=== PATIENT | female | born 1960 | race Caucasian/White ===

== ENCOUNTER 2017-09-03 12:55 | Outpatient (CLI) | payer BC | END 2017-09-03 12:56 | disposition home or self-care (01) | LOC: BICMAMMO 12:55 | PROVIDERS: ATTEND Specialist | DX: N64.4 Mastodynia (principal); Z80.3 Family history of malignant neoplasm of breast; Z85.41 Personal history of malignant neoplasm of cervix uteri | CPT/HCPCS: 77066; G0279 ==

== ENCOUNTER 2017-11-04 15:19 | Outpatient (CLI) | payer BC | END 2017-11-04 15:20 | disposition home or self-care (01) | LOC: SCSULT 15:19 → BICULT 15:20 | PROVIDERS: ATTEND Urology | DX: N20.0 Calculus of kidney (principal) | CPT/HCPCS: 74018; 76770 ==

== ENCOUNTER 2018-04-27 20:46 | Emergency (ER) | payer BC ==
[2018-04-27] MEDS ORDERED: Ondansetron PF 4 MG/2 ML Vial ONE ×2 (21:23→23:13)
[2018-04-27 21:32] LABS: #Eosinphils 0.1 thou/uL (0.0-0.7); #Lymphocytes 0.6 thou/uL (1.20-3.40); #Monocytes 0.4 thou/uL (0.11-0.59); #Neutrophils 10.4 thou/uL (1.40-6.50); %Basophils 0.1 % (0.0-1.0); %Eosinophils 0.8 % (0.0-10.0); %Lymphocytes 5.5 % (21.0-51.0); %Monocytes 3.4 % (0.0-10.0); %Neutrophils 90.1 % (42.0-75.0); Hemoglobin 15.1 g/dL (12.0-16.0); Mean Corpuscular HGB CONC 33.3 g/dL (32.0-36.0); Mean Corpuscular Hemoglobin 32.7 pg (27.0-31.0); Mean Corpuscular Volume 98.1 fL (78.0-98.0); Mean Platelet Volume 8.4 fL (7.4-10.4); Platelet Count 217 thou/uL (130-400); RBC Distribution Width 11.8 % (11.5-14.5); Red Blood Cell (RBC) Count 4.63 mill/uL (4.20-5.40); White Blood Cell (WBC) Count 11.5 thou/uL (4.8-10.8)
[2018-04-27 21:52] LABS: ALT (SGPT) 9 U/L (8-55); AST (SGOT) 19 U/L (5-34); Albumin 4.6 g/dL (3.5-5.0); Alkaline Phosphatase 147 U/L (40-150); Anion Gap 11 mmol/L (10-20); BUN (Urea Nitrogen) 18 mg/dL (9.8-20.1); Bilirubin, Total 1.3 mg/dL (0.2-1.2); Calc. Creatinine Clearance 0 mL/min (70-130); Calcium 9.8 mg/dL (7.8-10.44); Carbon Dioxide 29 mmol/L (22-29); Chloride 104 mmol/L (98-107); Estimated GFR-MDRD 78; Globulin 3.1 g/dL (2.4-3.5); Glucose 136 mg/dL (70-105); Potassium 3.8 mmol/L (3.5-5.1); Protein, Total 7.7 g/dL (6.0-8.3); Sodium 140 mmol/L (136-145)
[2018-04-27] MEDS ORDERED: Lidocaine Viscous Sol 2% 15 ml UD Cup ONE (22:17)
[2018-04-27] MEDS ORDERED: Ketorolac Tromethamine 30 MG/ML VIAL ONE (23:01)
[2018-04-27] MEDS ORDERED: Ondansetron ODT 4 MG TAB ONE (23:13)
[2018-04-27] MEDS ORDERED: Ondansetron ODT 8 MG TAB ONE (23:14)
--- NOTE | 2018-04-30 12:31 | EKG ---
Test Reason : Blood Pressure : / mmHG Vent. Rate : 096 BPM Atrial Rate : 096 BPM P-R Int : 124 ms QRS Dur : 074 ms QT Int : 340 ms P-R-T Axes : 056 027 065 degrees QTc Int : 429 ms Normal sinus rhythm Possible Left atrial enlargement Borderline ECG Confirmed by WILMAR LOW ([id number]), assistant production editor MATEUSZ QUEEN ([id number]) on 04/30/2018 12:30:52 PM Referred By: Confirmed By:WILMAR LOW
== END 2018-04-27 23:19 | disposition home or self-care (01) ==
LOC: ERS 20:46
DX: B34.9 Viral infection, unspecified (principal); J02.9 Acute pharyngitis, unspecified; E03.9 Hypothyroidism, unspecified; Z87.442 Personal history of urinary calculi
CPT/HCPCS: 80053; 84484; 85025; 87081; 87430; 87804; 93005; 96361; 96374; 96375; J1885; J2405; Q0162

== ENCOUNTER 2018-09-21 07:49 | Outpatient (CLI) | payer BC ==
--- NOTE | 2018-09-21 08:37 | MMO ---
Bilateral MAMMO Bilat Screen [facility]. CLINICAL HISTORY: Patient is 58 years old and is seen for screening. The patient has the following family history of breast cancer: 2 cousin females, Paternal and cousin female, 2ND PATERNAL. The patient has a history of cervical cancer. The patient has a history of left Excisional Biopsy in October, - benign. VIEWS: The views performed were: bilateral craniocaudal with tomosynthesis and bilateral mediolateral oblique with tomosynthesis. FILMS COMPARED: The present examination has been compared to prior imaging studies performed at [facility] on 03/17/2011, 03/24/2012, 04/18/2013, 10/06/2016 and 09/03/2017. MAMMOGRAM FINDINGS: The breasts are heterogeneously dense, which could obscure a lesion on mammography. There are no suspicious masses, suspicious calcifications, or new areas of architectural distortion. IMPRESSION: THERE IS NO MAMMOGRAPHIC EVIDENCE OF MALIGNANCY. A ROUTINE FOLLOW-UP MAMMOGRAM IN 1 YEAR IS RECOMMENDED. THE RESULTS OF THIS EXAM WERE SENT TO THE PATIENT. ACR BI-RADS Category 1 - Negative MAMMOGRAPHY NOTE: 1. A negative mammogram report should not delay a biopsy if a dominant of clinically suspicious mass is present. 2. Approximately 10% to 15% of breast cancers are not detected by mammography. 3. Adenosis and dense breasts may obscure an underlying neoplasm.
== END 2018-09-21 07:50 | disposition home or self-care (01) ==
LOC: BICMAMMO 07:49
PROVIDERS: ATTEND Specialist
DX: Z12.31 Encounter for screening mammogram for malignant neoplasm of breast (principal); Z80.3 Family history of malignant neoplasm of breast; Z85.41 Personal history of malignant neoplasm of cervix uteri
CPT/HCPCS: 77063; 77067

== ENCOUNTER 2019-09-27 13:41 | Outpatient (CLI) | payer BC ==
--- NOTE | 2019-09-27 15:03 | MMO ---
Bilateral MAMMO Bilat Screen [facility]. CLINICAL HISTORY: Patient is 59 years old and is seen for screening. The patient has the following family history of breast cancer: 2 cousin females, Paternal and cousin female, 2ND PATERNAL. The patient has a history of cervical cancer. The patient has a history of left Excisional Biopsy in October, - benign. VIEWS: The views performed were: bilateral craniocaudal with tomosynthesis and bilateral mediolateral oblique with tomosynthesis. FILMS COMPARED: The present examination has been compared to prior imaging studies performed at [facility] on 04/18/2013, 10/06/2016, 09/03/2017 and 09/21/2018. This study has been interpreted with the assistance of computer-aided detection. MAMMOGRAM FINDINGS: The breasts are heterogeneously dense, which could obscure a lesion on mammography. There are no suspicious masses, suspicious calcifications, or new areas of architectural distortion. IMPRESSION: THERE IS NO MAMMOGRAPHIC EVIDENCE OF MALIGNANCY. A ROUTINE FOLLOW-UP MAMMOGRAM IN 1 YEAR IS RECOMMENDED. THE RESULTS OF THIS EXAM WERE SENT TO THE PATIENT. ACR BI-RADS Category 1 - Negative MAMMOGRAPHY NOTE: 1. A negative mammogram report should not delay a biopsy if a dominant of clinically suspicious mass is present. 2. Approximately 10% to 15% of breast cancers are not detected by mammography. 3. Adenosis and dense breasts may obscure an underlying neoplasm. Reported by: HERON BOONE MD Electonically Signed: [id number]
--- NOTE | 2019-09-27 15:28 | BD ---
DEXA BONE DENSITOMETRY: (Dual energy X-ray Absorptiometry) 09/27/19 HISTORY: 59-year-old white female for baseline, postmenopausal, age-related osteoporosis screening examination . Age of menopause: 47 years. Height: 60 inches. Weight: 130 lb. COMPARISON: None available. FINDINGS: The bone mineral density (BMD) is given in grams per square centimeter (g/cm2): LUMBAR SPINE: BMD(g/cm2) T-score Z-score L1: 0.770 -2.0 -0.7 L2: 0.899 -1.2 0.3 L3: 0.881 -1.8 -0.3 L4: 0.842 -2.0 -0.4 Total: 0.848 -1.8 -0.3 HIP: Femoral neck: 0.458 -3.5 -2.2 Total: 0.602 -2.8 -1.8 IMPRESSION: 1) The mean bone mineral density of the lumbar spine is osteopenic. Fracture risk is increased. 2) The bone mineral density of the femoral neck is osteoporotic. Fracture risk is high. JN R POS: [facility]
== END 2019-09-27 13:42 | disposition home or self-care (01) ==
LOC: BICMAMMO 13:41
PROVIDERS: ATTEND Specialist
DX: Z12.31 Encounter for screening mammogram for malignant neoplasm of breast (principal); M81.0 Age-related osteoporosis without current pathological fracture; M85.88 Other specified disorders of bone density and structure, other site; Z80.3 Family history of malignant neoplasm of breast; Z91.89 Other specified personal risk factors, not elsewhere classified; Z85.41 Personal history of malignant neoplasm of cervix uteri
CPT/HCPCS: 77063; 77067; 77080

== ENCOUNTER 2020-07-02 12:55 | Outpatient (CLI) | payer BC ==
--- NOTE | 2020-07-02 13:39 | CT ---
CT Stone Protocol 07/02/2020 1:00 PM HISTORY: Right flank pain for months. Progressively worse. COMPARISON: 02/02/2017 Technique: Multiple contiguous axial CT images are obtained through the abdomen and pelvis without IV contrast. Coronal reformats are provided. FINDINGS: This examination is limited for the evaluation of solid organs and vascular structures due to the lac k of intravenous contrast. Lower Chest: Lung bases are clear. Liver: Grossly normal non-enhanced CT appearance. Gallbladder: Within normal limits for CT imaging. Pancreas: Grossly normal nonenhanced CT appearance. Spleen: Grossly normal nonenhanced CT appearance. Adrenals: Grossly normal nonenhanced CT appearance. Kidneys and ureters: Nonobstructing right renal calculi are seen with at least 4 nonobstructing calcu li visualized. Largest calculus in the superior pole measures 4 mm. No left renal calculus is seen, and there is no ureteral calculus or evidence of hydronephrosis. Urinary bladder: Incompletely distended but otherwise grossly normal in appearance. Reproductive Organs: Evidence of hysterectomy. Lymph Nodes: No enlarged lymph nodes. Bowel: Small bowel loops are normal in caliber. Appendix: The appendix is normal in caliber. Peritoneum: No free fluid, free air, or fluid collection. Retroperitoneum: within normal limits. Vessels: Vascular calcifications are seen in the abdominal aorta and iliac arteries.. Abdominal Wall: There is evidence of a fat-containing Spigelian hernia on the right at the level of the upper pelvis. Bones: No lytic or sclerotic osseous lesions. IMPRESSION: 1. Nonobstructing right renal calculi. 2. No left renal calculus or ureteral calculi are seen. 3. Stable fat-containing right Spigelian hernia.
== END 2020-07-02 12:56 | disposition home or self-care (01) ==
LOC: CT 12:55
PROVIDERS: ATTEND Urology
DX: N20.2 Calculus of kidney with calculus of ureter (principal); K43.9 Ventral hernia without obstruction or gangrene
CPT/HCPCS: 74176

== ENCOUNTER 2020-07-31 14:36 | Inpatient (IN) | payer BC ==
[2020-07-31 15:10] LABS: #Eosinphils 0.1 thou/uL (0.0-0.7); #Lymphocytes 1.9 thou/uL (1.20-3.40); #Monocytes 0.5 thou/uL (0.11-0.59); #Neutrophils 3.9 thou/uL (1.40-6.50); %Basophils 0.7 % (0.0-1.0); %Eosinophils 2.1 % (0.0-10.0); %Lymphocytes 28.7 % (21.0-51.0); %Monocytes 7.6 % (0.0-10.0); %Neutrophils 60.9 % (42.0-75.0); Hemoglobin 14.3 g/dL (12.0-16.0); Mean Corpuscular HGB CONC 33.9 g/dL (32.0-36.0); Mean Corpuscular Hemoglobin 34.4 pg (27.0-31.0); Mean Platelet Volume 9.2 fL (7.4-10.4); Platelet Count 198 thou/uL (130-400); RBC Distribution Width 12.7 % (11.5-14.5); Red Blood Cell (RBC) Count 4.14 mill/uL (4.20-5.40); White Blood Cell (WBC) Count 6.5 thou/uL (4.8-10.8)
[2020-07-31 15:34] LABS: ALT (SGPT) 15 U/L (8-55); AST (SGOT) 28 U/L (5-34); Albumin 4.3 g/dL (3.4-4.8); Alkaline Phosphatase 98 U/L (40-110); Anion Gap 14 mmol/L (10-20); BUN (Urea Nitrogen) 13 mg/dL (9.8-20.1); Bilirubin, Total 1.1 mg/dL (0.2-1.2); Calc. Creatinine Clearance 0 mL/min (70-130); Calcium 9.3 mg/dL (7.8-10.44); Carbon Dioxide 24 mmol/L (23-31); Chloride 107 mmol/L (98-107); Globulin 2.5 g/dL (2.4-3.5); Glucose 120 mg/dL (80-115); Lipase 48 U/L (8-78); Potassium 4.1 mmol/L (3.5-5.1); Protein, Total 6.8 g/dL (5.8-8.1); Sodium 141 mmol/L (136-145)
[2020-07-31] MEDS ORDERED: Aspirin 325 MG TAB ONE (16:33)
[2020-07-31] MEDS ORDERED: Nitroglycerin 2% Ointment 1 INCH/1 GM Packet ONE (17:09)
[2020-07-31] MEDS ORDERED: Ondansetron PF 4 MG/2 ML Vial ONE ×2 (18:25→19:34)
[2020-07-31 19:22] LABS: Troponin I Less than 0.010 ng/mL (< 0.028)
[2020-07-31] MEDS ORDERED: Morphine 4 MG/ML VIAL ONE (19:34)
[2020-07-31] MEDS ORDERED: Acetaminophen 500 MG TAB ONE (19:39)
[2020-07-31 21:52] LABS: Troponin I Less than 0.010 ng/mL (< 0.028)
[2020-07-31] MEDS ORDERED: Phenazopyridine HCl 100 MG TAB PO SCH (22:00)
[2020-07-31] MEDS ORDERED: Sulfameth/Trimethoprim DS 800-160mg TAB PO SCH (22:00)
[2020-07-31] MEDS ORDERED: Acetaminophen 500 MG TAB PO PRN (22:10)
[2020-07-31] MEDS ORDERED: Promethazine 25 MG TAB PO PRN (22:12)
[2020-07-31] MEDS: Nitroglycerin 2% Ointment 1 INCH/1 GM Packet TOP SCH (22:44)
[2020-07-31 23:56] LABS: Bacteria/HPF None Seen HPF (None Seen); Bilirubin Negative (Negative); Blood, Urine Negative (Negative); Clarity Clear (Clear); Glucose, Urine (Dipstick) Normal (Negative); Ketone, Urine Negative (Negative); Leukocyte Negative Leu/uL (Negative); Nitrite Negative (Negative); Protein, Urine (Dipstick) Negative (Neg-Trace); RBC/HPF None Seen HPF (0-3); Specific Gravity, Urine 1.009 (1.002-1.036); Squamous Epithelial 0-3 HPF (0-3); Urobilinogen Normal mg/dL (Less than 2); WBC/HPF 0-3 HPF (0-3)
[2020-07-31 23:57] LABS: Urine Culture Reflex No No
[2020-08-01 05:43] LABS: SARS-CoV-2 PCR by NAA Not Detected (NotDetected)
[2020-08-01] MEDS: Nitroglycerin 2% Ointment 1 INCH/1 GM Packet TOP SCH ×2 (07:08→14:29)
[2020-08-01] MEDS: Levothyroxine Sodium 50 MCG TAB PO SCH (07:08)
[2020-08-01] MEDS: Phenazopyridine HCl 100 MG TAB PO SCH ×3 (08:58→20:39)
[2020-08-01] MEDS: Sulfameth/Trimethoprim DS 800-160mg TAB PO SCH ×2 (09:00→20:39)
[2020-08-01] MEDS: Carvedilol 6.25 MG TAB PO SCH ×2 (09:00→20:39)
[2020-08-01 10:46] VITALS: BMI 23.1
[2020-08-01] MEDS ORDERED: Iopamidol 370 76% 100 ML VIAL ONE (11:01)
[2020-08-01] MEDS ORDERED: ADENOSINE 60 MG/20 ML VIAL ONE (11:53)
[2020-08-01] MEDS: Clopidogrel Bisulfate 75 MG TAB PO SCH (12:35)
[2020-08-01] MEDS: Aspirin 325 mg Enteric Coated Tablet PO SCH (12:35)
[2020-08-01] MEDS: ESZOPICLONE 3 MG PO SCH ×2 (20:40→21:45)
[2020-08-02] MEDS: Nitroglycerin 2% Ointment 1 INCH/1 GM Packet TOP SCH ×3 (03:43→13:08)
[2020-08-02] MEDS: Levothyroxine Sodium 50 MCG TAB PO SCH (05:27)
[2020-08-02] MEDS ORDERED: Lidocaine 1% PF 5 ML VIAL ONE (09:03)
[2020-08-02] MEDS ORDERED: PROPOFOL 200 MG/20 ML VIAL ONE (09:03)
[2020-08-02] MEDS ORDERED: Ondansetron HCl/PF 4 MG/2 ML Vial IVP PRN (09:50)
[2020-08-02] MEDS: Sulfameth/Trimethoprim DS 800-160mg TAB PO SCH (10:22)
[2020-08-02] MEDS: Clopidogrel Bisulfate 75 MG TAB PO SCH (10:22)
[2020-08-02] MEDS: Carvedilol 6.25 MG TAB PO SCH (10:22)
[2020-08-02] MEDS: Aspirin 325 mg Enteric Coated Tablet PO SCH (10:22)
[2020-08-02] MEDS: Phenazopyridine HCl 100 MG TAB PO SCH (10:23)
[2020-08-02 10:25] VITALS: BP 140/63; TEMP 98.3
== END 2020-08-02 14:51 | disposition home or self-care (01) | DRG 392 ==
LOC: ERS 14:36 → 2SW 17:25 → OBSVTOIN 08-01 15:11
PROVIDERS: ADMIT Specialist; ATTEND Specialist
PROC: 0DB78ZX Excision of Stomach, Pylorus, Via Natural or Artificial Opening Endoscopic, Diagnostic (ICD-10-PCS; principal; 2020-08-02)
DX: K29.80 Duodenitis without bleeding (principal); Z20.822 Contact with and (suspected) exposure to COVID-19; E03.9 Hypothyroidism, unspecified; I25.10 Atherosclerotic heart disease of native coronary artery without angina pectoris; I10 Essential (primary) hypertension; K31.7 Polyp of stomach and duodenum; K21.9 Gastro-esophageal reflux disease without esophagitis; Z95.5 Presence of coronary angioplasty implant and graft; Z79.899 Other long term (current) drug therapy; Z79.890 Hormone replacement therapy; Z79.01 Long term (current) use of anticoagulants; Z88.1 Allergy status to other antibiotic agents
CPT/HCPCS: 36415; 71045; 71260; 78452; 80053; 81001; 83690; 83880; 84484; 85025; 85379; 87635; 88305; 93005; 93017; 96374; A9500; G0378; J0153; J2270; J2405; J2704; Q9967; U0003; U0005

== ENCOUNTER 2020-08-06 17:03 | Emergency (ER) | payer BC ==
[2020-08-06] MEDS ORDERED: Ondansetron ODT 4 MG TAB ONE (17:47)
== END 2020-08-06 18:57 | disposition home or self-care (01) ==
LOC: ERS 17:03
DX: R00.2 Palpitations (principal); R11.0 Nausea; T36.8X5A Adverse effect of other systemic antibiotics, initial encounter; R30.0 Dysuria; E03.9 Hypothyroidism, unspecified; G47.00 Insomnia, unspecified; Z79.82 Long term (current) use of aspirin; Z79.899 Other long term (current) drug therapy
CPT/HCPCS: 81001; 87086; 99283; Q0162

== ENCOUNTER 2020-08-10 13:01 | Emergency (ER) | payer BC ==
[~2020-08-10 13:01] MED LIST: Iopamidol-370 76% 500 ML 1 ML ONE
[2020-08-10 14:03] LABS: Bilirubin Negative (Negative); Blood, Urine Negative (Negative); Clarity Clear (Clear); Glucose, Urine (Dipstick) Normal (Negative); Ketone, Urine Negative (Negative); Leukocyte Negative Leu/uL (Negative); Nitrite Negative (Negative); Protein, Urine (Dipstick) Negative (Neg-Trace); Specific Gravity, Urine 1.005 (1.002-1.036); Urobilinogen Normal mg/dL (Less than 2); pH, Urine 6.5 (5.0-9.0)
[2020-08-10 14:07] LABS: #Basophils 0.1 thou/uL (0.0-0.2); #Eosinphils 0.1 thou/uL (0.0-0.7); #Lymphocytes 1.7 thou/uL (1.20-3.40); #Monocytes 0.6 thou/uL (0.11-0.59); #Neutrophils 4.9 thou/uL (1.40-6.50); %Basophils 1.1 % (0.0-1.0); %Eosinophils 1.6 % (0.0-10.0); %Lymphocytes 23.1 % (21.0-51.0); %Monocytes 7.8 % (0.0-10.0); %Neutrophils 66.4 % (42.0-75.0); Hemoglobin 13.3 g/dL (12.0-16.0); Mean Corpuscular Hemoglobin 33.5 pg (27.0-31.0); Mean Platelet Volume 8.6 fL (7.4-10.4); Platelet Count 211 thou/uL (130-400); RBC Distribution Width 12.5 % (11.5-14.5); Red Blood Cell (RBC) Count 3.98 mill/uL (4.20-5.40); White Blood Cell (WBC) Count 7.4 thou/uL (4.8-10.8)
[2020-08-10 14:32] LABS: ALT (SGPT) 8 U/L (8-55); AST (SGOT) 21 U/L (5-34); Albumin 4.1 g/dL (3.4-4.8); Alkaline Phosphatase 86 U/L (40-110); Anion Gap 15 mmol/L (10-20); BUN (Urea Nitrogen) 11 mg/dL (9.8-20.1); Calc. Creatinine Clearance 0 mL/min (70-130); Calcium 8.8 mg/dL (7.8-10.44); Carbon Dioxide 23 mmol/L (23-31); Chloride 107 mmol/L (98-107); Globulin 2.7 g/dL (2.4-3.5); Glucose 115 mg/dL (80-115); Lipase 51 U/L (8-78); Potassium 4.4 mmol/L (3.5-5.1); Protein, Total 6.8 g/dL (5.8-8.1); Sodium 141 mmol/L (136-145)
[2020-08-10] MEDS ORDERED: HYDROcodone/Acetaminophen 5/325 mg Tablet ONE (16:41)
== END 2020-08-10 18:58 | disposition home or self-care (01) ==
LOC: ERS 13:01
DX: R51.9 Headache, unspecified (principal); R10.84 Generalized abdominal pain; M54.9 Dorsalgia, unspecified; E03.9 Hypothyroidism, unspecified; Z79.899 Other long term (current) drug therapy; Z79.82 Long term (current) use of aspirin; Z86.16 Personal history of COVID-19
CPT/HCPCS: 36415; 70450; 74177; 80053; 81003; 83690; 84443; 84484; 85025; 93005; Q9967

== ENCOUNTER 2020-08-26 17:46 | Emergency (ER) | payer BC ==
[2020-08-26 18:21] LABS: Bilirubin Negative (Negative); Blood, Urine Negative (Negative); Clarity Clear (Clear); Glucose, Urine (Dipstick) Normal (Negative); Ketone, Urine Negative (Negative); Leukocyte Negative Leu/uL (Negative); Nitrite Negative (Negative); Protein, Urine (Dipstick) Negative (Neg-Trace); Specific Gravity, Urine 1.009 (1.002-1.036); Urobilinogen Normal mg/dL (Less than 2)
[2020-08-26 18:58] LABS: #Eosinphils 0.2 thou/uL (0.0-0.7); #Lymphocytes 1.9 thou/uL (1.20-3.40); #Monocytes 0.6 thou/uL (0.11-0.59); #Neutrophils 3.8 thou/uL (1.40-6.50); %Basophils 0.6 % (0.0-1.0); %Eosinophils 2.8 % (0.0-10.0); %Lymphocytes 29.3 % (21.0-51.0); %Neutrophils 58.3 % (42.0-75.0); Hemoglobin 13.1 g/dL (12.0-16.0); Mean Corpuscular Hemoglobin 33.7 pg (27.0-31.0); Mean Platelet Volume 8.9 fL (7.4-10.4); Platelet Count 211 thou/uL (130-400); RBC Distribution Width 12.1 % (11.5-14.5); Red Blood Cell (RBC) Count 3.89 mill/uL (4.20-5.40); White Blood Cell (WBC) Count 6.5 thou/uL (4.8-10.8)
[2020-08-26 19:23] LABS: ALT (SGPT) 8 U/L (8-55); AST (SGOT) 20 U/L (5-34); Albumin 4.2 g/dL (3.4-4.8); Alkaline Phosphatase 88 U/L (40-110); Anion Gap 13 mmol/L (10-20); BUN (Urea Nitrogen) 13 mg/dL (9.8-20.1); Bilirubin, Total 0.7 mg/dL (0.2-1.2); Calc. Creatinine Clearance 0 mL/min (70-130); Calcium 9.1 mg/dL (7.8-10.44); Carbon Dioxide 30 mmol/L (23-31); Chloride 104 mmol/L (98-107); Globulin 2.6 g/dL (2.4-3.5); Glucose 109 mg/dL (80-115); Lipase 47 U/L (8-78); Potassium 3.8 mmol/L (3.5-5.1); Protein, Total 6.8 g/dL (5.8-8.1); Sodium 143 mmol/L (136-145)
[2020-08-26] MEDS ORDERED: Lidocaine Viscous Sol 2% 15 ml UD Cup ONE (19:28)
[2020-08-26] MEDS ORDERED: Mag-Al 1200 mg/1200 mg/30 ML UDCUP ONE (19:28)
== END 2020-08-26 21:20 | disposition home or self-care (01) ==
LOC: ERS 17:46
DX: R10.9 Unspecified abdominal pain (principal); E03.9 Hypothyroidism, unspecified; Z95.5 Presence of coronary angioplasty implant and graft; Z86.16 Personal history of COVID-19; Z79.82 Long term (current) use of aspirin; Z79.899 Other long term (current) drug therapy
CPT/HCPCS: 36415; 80053; 81003; 83690; 85025; 99284

== ENCOUNTER 2020-09-11 16:04 | Observation (INO) | payer BC ==
[2020-09-11 17:08] LABS: #Basophils 0.1 thou/uL (0.0-0.2); #Eosinphils 0.2 thou/uL (0.0-0.7); #Monocytes 0.6 thou/uL (0.11-0.59); #Neutrophils 4.2 thou/uL (1.40-6.50); %Basophils 1.2 % (0.0-1.0); %Eosinophils 2.5 % (0.0-10.0); %Lymphocytes 28.5 % (21.0-51.0); %Monocytes 7.8 % (0.0-10.0); Hemoglobin 14.2 g/dL (12.0-16.0); Mean Corpuscular HGB CONC 34.6 g/dL (32.0-36.0); Mean Corpuscular Hemoglobin 34.7 pg (27.0-31.0); Mean Platelet Volume 8.7 fL (7.4-10.4); Platelet Count 226 thou/uL (130-400); RBC Distribution Width 11.7 % (11.5-14.5); Red Blood Cell (RBC) Count 4.09 mill/uL (4.20-5.40); White Blood Cell (WBC) Count 7.1 thou/uL (4.8-10.8)
[2020-09-11 17:40] LABS: ALT (SGPT) 12 U/L (8-55); AST (SGOT) 40 U/L (5-34); Albumin 4.6 g/dL (3.4-4.8); Alkaline Phosphatase 103 U/L (40-110); Anion Gap 16 mmol/L (10-20); BUN (Urea Nitrogen) 12 mg/dL (9.8-20.1); Bilirubin, Total 0.6 mg/dL (0.2-1.2); Calc. Creatinine Clearance 0 mL/min (70-130); Calcium 9.8 mg/dL (7.8-10.44); Carbon Dioxide 23 mmol/L (23-31); Chloride 104 mmol/L (98-107); Globulin 2.7 g/dL (2.4-3.5); Glucose 132 mg/dL (80-115); Potassium 3.8 mmol/L (3.5-5.1); Protein, Total 7.3 g/dL (5.8-8.1); Sodium 139 mmol/L (136-145)
[2020-09-11 17:51] LABS: Bilirubin Negative (Negative); Blood, Urine Negative (Negative); Clarity Clear (Clear); Glucose, Urine (Dipstick) Normal (Negative); Ketone, Urine Negative (Negative); Leukocyte Negative Leu/uL (Negative); Nitrite Negative (Negative); Protein, Urine (Dipstick) Negative (Neg-Trace); Urobilinogen Normal mg/dL (Less than 2); pH, Urine 5.5 (5.0-9.0)
[2020-09-11 18:34] LABS: Magnesium 2.3 mg/dL (1.6-2.6)
[2020-09-11] MEDS ORDERED: Acetaminophen 500 MG TAB ONE (18:59)
[2020-09-11 21:52] LABS: Troponin I Less than 0.010 ng/mL (< 0.028)
[2020-09-11] MEDS ORDERED: Aspirin Chewable 81 MG TAB ONE (22:23)
[2020-09-12 00:17] LABS: Troponin I Less than 0.010 ng/mL (< 0.028)
[2020-09-12] MEDS ORDERED: Acetaminophen 500 MG TAB PO PRN (00:24)
[2020-09-12] MEDS ORDERED: busPIRone HCl 5 MG TAB PO PRN ×2 (00:25→07:19)
[2020-09-12 00:26] VITALS: BMI 21.7
[2020-09-12] MEDS ORDERED: Dicyclomine 10 MG CAP PO PRN ×2 (00:27→07:15)
[2020-09-12] MEDS ORDERED: Cyclobenzaprine 10 MG TAB PO PRN ×2 (00:27→07:22)
[2020-09-12] MEDS ORDERED: Carvedilol 6.25 MG TAB PO SCH ×3 (00:30→21:00)
[2020-09-12] MEDS ORDERED: ESZOPICLONE 3 MG PO SCH ×2 (00:30→21:00)
[2020-09-12] MEDS ORDERED: Milk Of Magnesia 30 ML UDCUP PO PRN (00:33)
[2020-09-12] MEDS ORDERED: Ondansetron ODT 4 MG TAB PO PRN (00:33)
[2020-09-12] MEDS ORDERED: Promethazine 25 MG TAB PO PRN ×2 (00:34→07:15)
[2020-09-12] MEDS: Mag-Al 1200 mg/1200 mg/30 ML UDCUP PO PRN ×2 (00:55→19:53)
[2020-09-12] MEDS: Levothyroxine Sodium 50 MCG TAB PO SCH (05:06)
[2020-09-12 05:35] LABS: SARS-CoV-2 PCR by NAA Not Detected (NotDetected)
[2020-09-12] MEDS ORDERED: Ondansetron ODT 8 MG TAB PO PRN (07:15)
[2020-09-12] MEDS ORDERED: busPIRone HCl 10 MG TAB PO PRN (07:15)
[2020-09-12] MEDS ORDERED: Non-Formulary Item 1 EACH (Cyclobenzaprine Hcl [Cyclobenzaprine Hcl] 5 MG Tablet) PO PRN (07:15)
[2020-09-12] MEDS ORDERED: Lorazepam 2 MG/ML VIAL SLOW IVP PRN (07:45)
[2020-09-12] MEDS ORDERED: Levothyroxine Sodium 50 MCG TAB PO SCH (09:00)
[2020-09-12] MEDS ORDERED: Non-Formulary Item 1 EACH (Omeprazole [Omeprazole] 40 MG Capsule.Dr) PO SCH (09:00)
[2020-09-12] MEDS ORDERED: Clopidogrel Bisulfate 75 MG TAB PO SCH (09:00)
[2020-09-12] MEDS ORDERED: Aspirin 81 mg Enteric Coated Tablet PO SCH (09:00)
[2020-09-12] MEDS: Sodium Chloride 0.9% 1,000 ML IV SCH ×2 (09:26→17:06)
[2020-09-12] MEDS: Pantoprazole 40 MG VIAL IVP SCH ×2 (09:26→19:54)
[2020-09-12] MEDS ORDERED: Iopamidol 370 76% 100 ML VIAL ONE (12:15)
[2020-09-12] MEDS ORDERED: Verapamil 5 MG/2 ML VIAL ONE (12:49)
[2020-09-12] MEDS ORDERED: Heparin 10,000 UNITS/ 10 ML VIAL ONE (12:49)
[2020-09-12] MEDS ORDERED: Adenosine 6 MG/2 ML VIAL ONE (12:49)
[2020-09-12] MEDS ORDERED: Nitroglycerin 100MG/250ML BOT 0 ML ONE (12:49)
[2020-09-12] MEDS ORDERED: Fentanyl 100 MCG/2 ML VIAL ONE ×2 (13:34→14:30)
[2020-09-12] MEDS ORDERED: Midazolam HCl 2 mg/2 ml Vial ONE (13:34)
[2020-09-12] MEDS ORDERED: Ondansetron PF 4 MG/2 ML Vial ONE (13:55)
[2020-09-12] MEDS: Carvedilol 3.125 MG TAB PO SCH (14:00)
[2020-09-12] MEDS: Clopidogrel Bisulfate 75 MG TAB PO SCH (14:00)
[2020-09-12] MEDS: Aspirin 81 mg Enteric Coated Tablet PO SCH (14:00)
[2020-09-12] MEDS ORDERED: Protamine Sulfate 50 MG/5 ML VIAL ONE (14:05)
[2020-09-12] MEDS ORDERED: Sodium Chloride 0.9% 1,000 ML IV SCH (17:00)
[2020-09-12] MEDS ORDERED: Non-Formulary Item 1 EACH (Eszopiclone [Eszopiclone] 3 MG Tablet) PO SCH (21:00)
[2020-09-12] MEDS: ESZOPICLONE 3 MG PO SCH (21:03)
[2020-09-12] MEDS: Carvedilol 6.25 MG TAB PO SCH (21:03)
[2020-09-12] MEDS: Acetaminophen 500 MG TAB PO PRN (21:21)
[2020-09-13 05:07] LABS: #Eosinphils 0.2 thou/uL (0.0-0.7); #Monocytes 0.6 thou/uL (0.11-0.59); #Neutrophils 2.4 thou/uL (1.40-6.50); %Basophils 0.4 % (0.0-1.0); %Eosinophils 3.1 % (0.0-10.0); %Lymphocytes 38.9 % (21.0-51.0); %Monocytes 10.8 % (0.0-10.0); %Neutrophils 46.8 % (42.0-75.0); Hemoglobin 11.4 g/dL (12.0-16.0); Mean Corpuscular HGB CONC 33.2 g/dL (32.0-36.0); Mean Platelet Volume 8.7 fL (7.4-10.4); Platelet Count 180 thou/uL (130-400); RBC Distribution Width 11.6 % (11.5-14.5); Red Blood Cell (RBC) Count 3.34 mill/uL (4.20-5.40); White Blood Cell (WBC) Count 5.2 thou/uL (4.8-10.8)
[2020-09-13] MEDS: Levothyroxine Sodium 50 MCG TAB PO SCH (05:51)
[2020-09-13 06:51] LABS: ALT (SGPT) Less than 7 U/L (8-55); AST (SGOT) 12 U/L (5-34); Albumin 3.1 g/dL (3.4-4.8); Alkaline Phosphatase 70 U/L (40-110); Anion Gap 10 mmol/L (10-20); BUN (Urea Nitrogen) 9 mg/dL (9.8-20.1); Bilirubin, Total 0.5 mg/dL (0.2-1.2); Calc. Creatinine Clearance 76 mL/min (70-130); Calcium 7.7 mg/dL (7.8-10.44); Carbon Dioxide 24 mmol/L (23-31); Chloride 110 mmol/L (98-107); Globulin 1.9 g/dL (2.4-3.5); Glucose 106 mg/dL (80-115); Potassium 3.9 mmol/L (3.5-5.1); Sodium 140 mmol/L (136-145)
[2020-09-13] MEDS: Clopidogrel Bisulfate 75 MG TAB PO SCH (08:41)
[2020-09-13] MEDS: Aspirin 81 mg Enteric Coated Tablet PO SCH (08:41)
[2020-09-13] MEDS: Carvedilol 3.125 MG TAB PO SCH (08:41)
[2020-09-13] MEDS: Pantoprazole 40 MG VIAL IVP SCH ×2 (08:42→20:58)
[2020-09-13] MEDS: Acetaminophen 500 MG TAB PO PRN ×2 (13:04→20:59)
[2020-09-13] MEDS: Mag-Al 1200 mg/1200 mg/30 ML UDCUP PO PRN (15:19)
[2020-09-13] MEDS: ESZOPICLONE 3 MG PO SCH (20:58)
[2020-09-13] MEDS: Carvedilol 6.25 MG TAB PO SCH (20:59)
[2020-09-14] MEDS: Levothyroxine Sodium 50 MCG TAB PO SCH (05:02)
[2020-09-14 06:01] LABS: ALT (SGPT) Less than 7 U/L (8-55); AST (SGOT) 16 U/L (5-34); Albumin 3.9 g/dL (3.4-4.8); Alkaline Phosphatase 83 U/L (40-110); Bilirubin, Direct 0.2 mg/dL (0.1-0.3); Bilirubin, Total 0.7 mg/dL (0.2-1.2); Lipase 63 U/L (8-78); Protein, Total 6.3 g/dL (5.8-8.1)
[2020-09-14 08:20] VITALS: TEMP 97.8
[2020-09-14] MEDS: Aspirin 81 mg Enteric Coated Tablet PO SCH (08:59)
[2020-09-14] MEDS: Clopidogrel Bisulfate 75 MG TAB PO SCH (08:59)
[2020-09-14] MEDS: Carvedilol 3.125 MG TAB PO SCH (08:59)
[2020-09-14] MEDS: Pantoprazole 40 MG VIAL IVP SCH (08:59)
[2020-09-14 09:00] VITALS: BP 140/69
== END 2020-09-14 10:41 | disposition home or self-care (01) ==
LOC: ERS 16:04 → 2SW 20:51
PROVIDERS: ADMIT Specialist; ATTEND Specialist
PROC: 4A023N7 Measurement of Cardiac Sampling and Pressure, Left Heart, Percutaneous Approach (ICD-10-PCS; principal; 2020-09-12)
PROC: B2111ZZ Fluoroscopy of Multiple Coronary Arteries using Low Osmolar Contrast (ICD-10-PCS; 2020-09-12)
DX: I25.10 Atherosclerotic heart disease of native coronary artery without angina pectoris (principal); R07.9 Chest pain, unspecified; R10.13 Epigastric pain; R11.2 Nausea with vomiting, unspecified; R19.7 Diarrhea, unspecified; E78.5 Hyperlipidemia, unspecified; E03.9 Hypothyroidism, unspecified; K43.9 Ventral hernia without obstruction or gangrene; R93.2 Abnormal findings on diagnostic imaging of liver and biliary tract; M96.841 Postprocedural hematoma of a musculoskeletal structure following other procedure; E78.00 Pure hypercholesterolemia, unspecified; R62.7 Adult failure to thrive; Z68.21 Body mass index [BMI] 21.0-21.9, adult; Z86.16 Personal history of COVID-19; Z79.02 Long term (current) use of antithrombotics/antiplatelets; Z79.82 Long term (current) use of aspirin; Z79.899 Other long term (current) drug therapy; Z88.1 Allergy status to other antibiotic agents; Z88.2 Allergy status to sulfonamides; Z88.5 Allergy status to narcotic agent; Z88.8 Allergy status to other drugs, medicaments and biological substances; Z95.5 Presence of coronary angioplasty implant and graft; Z20.822 Contact with and (suspected) exposure to COVID-19; Y84.0 Cardiac catheterization as the cause of abnormal reaction of the patient, or of later complication, without mention of misadventure at the time of the procedure
CPT/HCPCS: 36415; 36416; 71275; 74174; 74181; 76942; 80053; 80076; 81003; 83690; 83735; 84484; 85025; 85347; 87045; 87046; 87324; 87328; 87329; 87427; 87449; 87635; 93005; 93010; 93458; 93571; 96374; 96375; 96376; 99152; 99153; C1769; C9113; G0378; J0153; J1644; J2060; J2250; J2405; J2720; J3010; Q9967; U0003; U0005

== ENCOUNTER 2020-09-26 20:06 | Emergency (ER) | payer BC | END 2020-09-26 21:40 | disposition home or self-care (01) | LOC: ERS 20:06 | DX: I97.630 Postprocedural hematoma of a circulatory system organ or structure following a cardiac catheterization (principal); I10 Essential (primary) hypertension; E03.9 Hypothyroidism, unspecified; G47.00 Insomnia, unspecified | CPT/HCPCS: 76936 ==

== ENCOUNTER 2020-10-15 22:18 | Emergency (ER) | payer BC ==
[2020-10-15 23:57] LABS: #Basophils 0.1 thou/uL (0.0-0.2); #Eosinphils 0.2 thou/uL (0.0-0.7); #Lymphocytes 2.5 thou/uL (1.20-3.40); #Monocytes 0.6 thou/uL (0.11-0.59); #Neutrophils 4.5 thou/uL (1.40-6.50); %Basophils 1.1 % (0.0-1.0); %Lymphocytes 31.5 % (21.0-51.0); %Monocytes 7.5 % (0.0-10.0); %Neutrophils 57.9 % (42.0-75.0); Hemoglobin 13.8 g/dL (12.0-16.0); Mean Corpuscular HGB CONC 33.8 g/dL (32.0-36.0); Mean Corpuscular Hemoglobin 33.9 pg (27.0-31.0); Mean Platelet Volume 8.9 fL (7.4-10.4); Platelet Count 196 thou/uL (130-400); RBC Distribution Width 11.6 % (11.5-14.5); Red Blood Cell (RBC) Count 4.09 mill/uL (4.20-5.40); White Blood Cell (WBC) Count 7.8 thou/uL (4.8-10.8)
[2020-10-16 00:26] LABS: ALT (SGPT) Less than 7 U/L (8-55); AST (SGOT) 14 U/L (5-34); Albumin 4.2 g/dL (3.4-4.8); Alkaline Phosphatase 72 U/L (40-110); Anion Gap 13 mmol/L (10-20); BUN (Urea Nitrogen) 19 mg/dL (9.8-20.1); Bilirubin, Total 0.8 mg/dL (0.2-1.2); Calc. Creatinine Clearance 0 mL/min (70-130); Calcium 9.5 mg/dL (7.8-10.44); Carbon Dioxide 25 mmol/L (23-31); Chloride 104 mmol/L (98-107); Globulin 2.6 g/dL (2.4-3.5); Glucose 104 mg/dL (80-115); Potassium 3.8 mmol/L (3.5-5.1); Protein, Total 6.8 g/dL (5.8-8.1); Sodium 138 mmol/L (136-145)
== END 2020-10-16 01:43 | disposition home or self-care (01) ==
LOC: ERS 22:18
DX: M79.81 Nontraumatic hematoma of soft tissue (principal); E03.9 Hypothyroidism, unspecified; I10 Essential (primary) hypertension; G47.00 Insomnia, unspecified; M19.90 Unspecified osteoarthritis, unspecified site
CPT/HCPCS: 36415; 80053; 85025; 85379

== ENCOUNTER 2020-11-18 11:51 | Outpatient (CLI) | payer BC ==
[2020-11-18 13:59] LABS: Bilirubin Negative (Negative); Blood, Urine Negative (Negative); Glucose, Urine (Dipstick) Negative (Negative); Ketone, Urine Negative (Negative); Leukocyte Negative (Negative); Nitrite Negative (Negative); Protein, Urine (Dipstick) Negative (Neg-Trace); Urobilinogen 0.2 mg/dL (Less than 2)
[2020-11-18 14:07] LABS: Clarity Clear (Clear)
[2020-11-18 14:19] LABS: RBC/HPF None Seen HPF (0-3); Squamous Epithelial None Seen HPF (0-3); WBC/HPF None Seen HPF (0-3)
[2020-11-18 14:20] LABS: Urine Culture Reflex No No
== END 2020-11-18 11:52 | disposition home or self-care (01) ==
LOC: BICRAD 11:51
PROVIDERS: ATTEND Chiropractor
DX: M54.6 Pain in thoracic spine (principal); N20.0 Calculus of kidney; R35.0 Frequency of micturition
CPT/HCPCS: 72072; 74018; 81001

== ENCOUNTER 2021-02-02 14:55 | Observation (INO) | payer BC ==
[2021-02-02 15:17] LABS: #Eosinphils 0.2 thou/uL (0.0-0.7); #Lymphocytes 1.9 thou/uL (1.20-3.40); #Monocytes 0.4 thou/uL (0.11-0.59); #Neutrophils 3.2 thou/uL (1.40-6.50); %Basophils 0.8 % (0.0-1.0); %Lymphocytes 32.8 % (21.0-51.0); %Monocytes 7.5 % (0.0-10.0); Hemoglobin 13.8 g/dL (12.0-16.0); Mean Corpuscular HGB CONC 33.1 g/dL (32.0-36.0); Mean Corpuscular Hemoglobin 33.6 pg (27.0-31.0); Mean Platelet Volume 9.2 fL (7.4-10.4); Platelet Count 199 thou/uL (130-400); RBC Distribution Width 12.2 % (11.5-14.5); White Blood Cell (WBC) Count 5.8 thou/uL (4.8-10.8)
[2021-02-02 15:35] LABS: ALT (SGPT) 35 U/L (8-55); AST (SGOT) 122 U/L (5-34); Albumin 4.1 g/dL (3.4-4.8); Alkaline Phosphatase 128 U/L (40-110); Anion Gap 12 mmol/L (10-20); BUN (Urea Nitrogen) 16 mg/dL (9.8-20.1); Bilirubin, Total 1.3 mg/dL (0.2-1.2); Calc. Creatinine Clearance 0 mL/min (70-130); Calcium 9.4 mg/dL (7.8-10.44); Carbon Dioxide 32 mmol/L (23-31); Chloride 102 mmol/L (98-107); Globulin 2.8 g/dL (2.4-3.5); Glucose 130 mg/dL (80-115); Lipase 79 U/L (8-78); Potassium 4.5 mmol/L (3.5-5.1); Protein, Total 6.9 g/dL (5.8-8.1); Sodium 141 mmol/L (136-145)
[2021-02-02 15:37] LABS: Digoxin Less than 0.15 ng/mL (0.8-2.0)
[2021-02-02] MEDS ORDERED: Aspirin Chewable 81 MG TAB ONE (16:45)
[2021-02-02] MEDS ORDERED: Nitroglycerin 2% Ointment 1 INCH/1 GM Packet ONE (16:45)
[2021-02-02 18:27] LABS: Troponin I Less than 0.010 ng/mL (< 0.028)
[2021-02-02] MEDS ORDERED: Temazepam 15 MG CAP PO PRN (19:02)
[2021-02-02] MEDS ORDERED: Ondansetron PF 4 MG/2 ML Vial IVP PRN (19:58)
[2021-02-02] MEDS ORDERED: Nitroglycerin 0.4 MG TAB (25 Tab Bottle) SL PRN (19:59)
[2021-02-02] MEDS ORDERED: Acetaminophen 325 MG TAB PO PRN (20:02)
[2021-02-02] MEDS ORDERED: Lorazepam 0.5 MG TAB PO PRN (20:03)
[2021-02-02] MEDS: Carvedilol 3.125 MG TAB PO SCH (20:48)
[2021-02-02 22:22] LABS: Troponin I Less than 0.010 ng/mL (< 0.028)
[2021-02-02 23:43] VITALS: BMI 21.2
[2021-02-03] MEDS ORDERED: Clopidogrel Bisulfate 75 MG TAB PO SCH (09:00)
[2021-02-03] MEDS ORDERED: Escitalopram Oxalate 10 mg Tablet PO SCH (09:00)
[2021-02-03] MEDS ORDERED: Aspirin 81 mg Enteric Coated Tablet PO SCH (09:00)
[2021-02-03] MEDS: Carvedilol 3.125 MG TAB PO SCH (09:05)
[2021-02-03 13:45] LABS: SARS-CoV-2 PCR by NAA Not Detected (NotDetected)
[2021-02-03 13:53] VITALS: BP 130/60; TEMP 97.8
== END 2021-02-03 15:10 | disposition home or self-care (01) ==
LOC: ERS 14:55 → 2NO 17:00
PROVIDERS: ADMIT Specialist; ATTEND Specialist
DX: R07.89 Other chest pain (principal); I25.10 Atherosclerotic heart disease of native coronary artery without angina pectoris; I10 Essential (primary) hypertension; E78.5 Hyperlipidemia, unspecified; E03.9 Hypothyroidism, unspecified; G47.00 Insomnia, unspecified; M81.0 Age-related osteoporosis without current pathological fracture; N20.0 Calculus of kidney; R91.8 Other nonspecific abnormal finding of lung field; K85.90 Acute pancreatitis without necrosis or infection, unspecified; F41.9 Anxiety disorder, unspecified; Z20.822 Contact with and (suspected) exposure to COVID-19; Z86.16 Personal history of COVID-19; Z79.82 Long term (current) use of aspirin; Z79.02 Long term (current) use of antithrombotics/antiplatelets; Z79.899 Other long term (current) drug therapy; Z96.0 Presence of urogenital implants; Z95.5 Presence of coronary angioplasty implant and graft; Z88.1 Allergy status to other antibiotic agents; Z88.2 Allergy status to sulfonamides; Z88.5 Allergy status to narcotic agent; Z88.8 Allergy status to other drugs, medicaments and biological substances
CPT/HCPCS: 36415; 71045; 71275; 74174; 80053; 80162; 82150; 83690; 84484; 85025; 93005; G0378; Q9967; U0003; U0005

== ENCOUNTER 2021-05-29 16:11 | Outpatient (CLI) | payer BC | END 2021-05-29 16:12 | disposition home or self-care (01) | LOC: BICRAD 16:11 | PROVIDERS: ATTEND Urology | DX: N20.0 Calculus of kidney (principal) | CPT/HCPCS: 74018 ==

== ENCOUNTER 2021-06-14 02:34 | Observation (INO) | payer BC ==
[2021-06-14] MEDS ORDERED: Aspirin 325 MG TAB ONE (02:50)
[2021-06-14] MEDS ORDERED: Nitroglycerin 0.4 MG TAB 1 EACH ONE ×2 (02:50→02:52)
[2021-06-14 02:59] LABS: #Eosinphils 0.2 thou/uL (0.0-0.7); #Lymphocytes 2.1 thou/uL (1.20-3.40); #Monocytes 0.5 thou/uL (0.11-0.59); #Neutrophils 2.5 thou/uL (1.40-6.50); %Basophils 0.2 % (0.0-1.0); %Eosinophils 4.7 % (0.0-10.0); %Lymphocytes 39.5 % (21.0-51.0); %Monocytes 8.6 % (0.0-10.0); Hemoglobin 13.5 g/dL (12.0-16.0); Mean Corpuscular HGB CONC 32.6 g/dL (32.0-36.0); Mean Corpuscular Hemoglobin 32.8 pg (27.0-31.0); Mean Platelet Volume 8.2 fL (7.4-10.4); Platelet Count 174 thou/uL (130-400); RBC Distribution Width 12.4 % (11.5-14.5); Red Blood Cell (RBC) Count 4.12 mill/uL (4.20-5.40); White Blood Cell (WBC) Count 5.3 thou/uL (4.8-10.8)
[2021-06-14 03:22] LABS: ALT (SGPT) 58 U/L (8-55); AST (SGOT) 240 U/L (5-34); Albumin 4.1 g/dL (3.4-4.8); Alkaline Phosphatase 145 U/L (40-110); Anion Gap 15 mmol/L (10-20); BUN (Urea Nitrogen) 23 mg/dL (9.8-20.1); Bilirubin, Total 1.4 mg/dL (0.2-1.2); Calc. Creatinine Clearance 0 mL/min (70-130); Calcium 9.4 mg/dL (7.8-10.44); Carbon Dioxide 28 mmol/L (23-31); Chloride 102 mmol/L (98-107); Globulin 2.4 g/dL (2.4-3.5); Glucose 104 mg/dL (80-115); Lipase 85 U/L (8-78); Potassium 3.7 mmol/L (3.5-5.1); Protein, Total 6.5 g/dL (5.8-8.1); Sodium 141 mmol/L (136-145)
[2021-06-14] MEDS ORDERED: Nitroglycerin 2% Ointment 1 INCH/1 GM Packet ONE (04:00)
[2021-06-14 04:48] VITALS: BMI 22.5
[2021-06-14] MEDS ORDERED: Dextrose 5 % And 0.9 % NaCl 1,000 ML IV SCH (05:00)
[2021-06-14 06:40] LABS: Troponin I Less than 0.010 ng/mL (< 0.028)
[2021-06-14] MEDS ORDERED: Ondansetron PF 4 MG/2 ML Vial IVP PRN (13:23)
[2021-06-14] MEDS ORDERED: Fentanyl 100 MCG/2 ML VIAL SLOW IVP PRN (13:24)
[2021-06-14] MEDS ORDERED: Lorazepam 2 MG/ML VIAL SLOW IVP PRN (13:25)
[2021-06-14] MEDS: Pantoprazole 40 MG VIAL IVP SCH (15:29)
[2021-06-14] MEDS: Dextrose 5 % And 0.9 % NaCl 1,000 ML IV SCH (15:34)
[2021-06-14] MEDS ORDERED: Regadenoson 0.4 MG/5 ML SYRINGE ONE (15:48)
[2021-06-14] MEDS ORDERED: Acetaminophen 325 MG TAB PO PRN (16:10)
[2021-06-14 17:19] LABS: Troponin I Less than 0.010 ng/mL (< 0.028)
[2021-06-14 20:03] LABS: SARS-CoV-2 PCR by NAA Not Detected (NotDetected)
[2021-06-14] MEDS: Atorvastatin Calcium 40 MG TAB PO SCH (22:43)
[2021-06-14] MEDS: Zolpidem Tartrate 5 MG TAB PO SCH (22:44)
[2021-06-15] MEDS: Dextrose 5 % And 0.9 % NaCl 1,000 ML IV SCH ×4 (00:44→22:59)
[2021-06-15] MEDS: Pantoprazole 40 MG VIAL IVP SCH ×2 (00:50→13:42)
[2021-06-15] MEDS: Levothyroxine Sodium 50 MCG TAB PO SCH (06:19)
[2021-06-15 07:04] LABS: #Eosinphils 0.2 thou/uL (0.0-0.7); #Lymphocytes 1.1 thou/uL (1.20-3.40); #Monocytes 0.4 thou/uL (0.11-0.59); #Neutrophils 1.4 thou/uL (1.40-6.50); %Basophils 0.7 % (0.0-1.0); %Eosinophils 5.4 % (0.0-10.0); %Lymphocytes 35.3 % (21.0-51.0); %Neutrophils 46.6 % (42.0-75.0); Hemoglobin 11.8 g/dL (12.0-16.0); Mean Corpuscular HGB CONC 31.4 g/dL (32.0-36.0); Mean Corpuscular Hemoglobin 32.1 pg (27.0-31.0); Mean Platelet Volume 8.3 fL (7.4-10.4); Platelet Count 140 thou/uL (130-400); RBC Distribution Width 12.3 % (11.5-14.5); Red Blood Cell (RBC) Count 3.67 mill/uL (4.20-5.40); White Blood Cell (WBC) Count 3.1 thou/uL (4.8-10.8)
[2021-06-15 07:28] LABS: ALT (SGPT) 300 U/L (8-55); AST (SGOT) 566 U/L (5-34); Albumin 3.3 g/dL (3.4-4.8); Alkaline Phosphatase 238 U/L (40-110); Anion Gap 11 mmol/L (10-20); BUN (Urea Nitrogen) 7 mg/dL (9.8-20.1); Bilirubin, Direct 0.3 mg/dL (0.1-0.3); Calc. Creatinine Clearance 68 mL/min (70-130); Calcium 8.3 mg/dL (7.8-10.44); Carbon Dioxide 27 mmol/L (23-31); Chloride 107 mmol/L (98-107); Glucose 97 mg/dL (80-115); Lipase 35 U/L (8-78); Potassium 3.8 mmol/L (3.5-5.1); Protein, Total 5.6 g/dL (5.8-8.1); Sodium 141 mmol/L (136-145)
[2021-06-15] MEDS ORDERED: ALPRAZolam 1 MG TAB PO SCH ×2 (08:00→13:45)
[2021-06-15] MEDS ORDERED: Citalopram 10 MG TAB PO SCH (09:00)
[2021-06-15] MEDS ORDERED: Escitalopram Oxalate 20 mg Tablet PO SCH (10:15)
[2021-06-15] MEDS: Atorvastatin Calcium 40 MG TAB PO SCH (20:51)
[2021-06-15] MEDS: Zolpidem Tartrate 5 MG TAB PO SCH (20:52)
[2021-06-16] MEDS: Pantoprazole 40 MG VIAL IVP SCH ×3 (02:33→18:47)
[2021-06-16] MEDS: Levothyroxine Sodium 50 MCG TAB PO SCH (06:14)
[2021-06-16 07:23] LABS: #Eosinphils 0.3 thou/uL (0.0-0.7); #Lymphocytes 1.3 thou/uL (1.20-3.40); #Monocytes 0.5 thou/uL (0.11-0.59); #Neutrophils 2.1 thou/uL (1.40-6.50); %Basophils 0.5 % (0.0-1.0); %Eosinophils 6.2 % (0.0-10.0); %Lymphocytes 31.5 % (21.0-51.0); %Neutrophils 50.8 % (42.0-75.0); Hemoglobin 11.6 g/dL (12.0-16.0); Mean Corpuscular HGB CONC 33.1 g/dL (32.0-36.0); Mean Corpuscular Hemoglobin 33.8 pg (27.0-31.0); Mean Platelet Volume 8.4 fL (7.4-10.4); Platelet Count 135 thou/uL (130-400); RBC Distribution Width 12.2 % (11.5-14.5); Red Blood Cell (RBC) Count 3.44 mill/uL (4.20-5.40); White Blood Cell (WBC) Count 4.2 thou/uL (4.8-10.8)
[2021-06-16 07:46] LABS: ALT (SGPT) 186 U/L (8-55); AST (SGOT) 218 U/L (5-34); Alkaline Phosphatase 211 U/L (40-110); Anion Gap 8 mmol/L (10-20); BUN (Urea Nitrogen) 11 mg/dL (9.8-20.1); Bilirubin, Direct 0.6 mg/dL (0.1-0.3); Bilirubin, Total 1.2 mg/dL (0.2-1.2); Calc. Creatinine Clearance 70 mL/min (70-130); Calcium 8.1 mg/dL (7.8-10.44); Carbon Dioxide 29 mmol/L (23-31); Chloride 108 mmol/L (98-107); Glucose 117 mg/dL (80-115); Potassium 3.8 mmol/L (3.5-5.1); Protein, Total 5.2 g/dL (5.8-8.1); Sodium 141 mmol/L (136-145)
[2021-06-16] MEDS: Escitalopram Oxalate 20 mg Tablet PO SCH (09:57)
[2021-06-16] MEDS: Dextrose 5 % And 0.9 % NaCl 1,000 ML IV SCH ×3 (10:01→21:05)
[2021-06-16] MEDS: Atorvastatin Calcium 40 MG TAB PO SCH (21:05)
[2021-06-16] MEDS: Zolpidem Tartrate 5 MG TAB PO SCH (21:09)
[2021-06-17] MEDS: Pantoprazole 40 MG VIAL IVP SCH (05:16)
[2021-06-17] MEDS: Levothyroxine Sodium 50 MCG TAB PO SCH (05:16)
[2021-06-17] MEDS: Dextrose 5 % And 0.9 % NaCl 1,000 ML IV SCH (05:16)
[2021-06-17 06:06] LABS: #Eosinphils 0.3 thou/uL (0.0-0.7); #Lymphocytes 1.7 thou/uL (1.20-3.40); #Monocytes 0.4 thou/uL (0.11-0.59); #Neutrophils 1.8 thou/uL (1.40-6.50); %Basophils 0.5 % (0.0-1.0); %Eosinophils 6.3 % (0.0-10.0); %Lymphocytes 39.9 % (21.0-51.0); %Monocytes 10.1 % (0.0-10.0); %Neutrophils 43.3 % (42.0-75.0); Hemoglobin 11.9 g/dL (12.0-16.0); Mean Corpuscular HGB CONC 32.7 g/dL (32.0-36.0); Mean Corpuscular Hemoglobin 33.2 pg (27.0-31.0); Mean Platelet Volume 8.4 fL (7.4-10.4); Platelet Count 137 thou/uL (130-400); RBC Distribution Width 12.2 % (11.5-14.5); Red Blood Cell (RBC) Count 3.58 mill/uL (4.20-5.40); White Blood Cell (WBC) Count 4.2 thou/uL (4.8-10.8)
[2021-06-17 06:31] LABS: ALT (SGPT) 137 U/L (8-55); AST (SGOT) 108 U/L (5-34); Albumin 3.3 g/dL (3.4-4.8); Alkaline Phosphatase 220 U/L (40-110); Anion Gap 9 mmol/L (10-20); BUN (Urea Nitrogen) 12 mg/dL (9.8-20.1); Bilirubin, Direct 0.5 mg/dL (0.1-0.3); Calc. Creatinine Clearance 72 mL/min (70-130); Calcium 8.6 mg/dL (7.8-10.44); Carbon Dioxide 29 mmol/L (23-31); Chloride 107 mmol/L (98-107); Glucose 107 mg/dL (80-115); Lipase 55 U/L (8-78); Potassium 3.9 mmol/L (3.5-5.1); Protein, Total 5.6 g/dL (5.8-8.1); Sodium 141 mmol/L (136-145)
[2021-06-17] MEDS ORDERED: Ursodiol 300 MG CAP PO SCH (08:00)
[2021-06-17 08:17] VITALS: BP 142/68; TEMP 98.1
[2021-06-17] MEDS: Escitalopram Oxalate 20 mg Tablet PO SCH (09:18)
== END 2021-06-17 12:30 | disposition home or self-care (01) ==
LOC: ERS 02:34 → NEURO 03:43
PROVIDERS: ADMIT Specialist; ATTEND Specialist
DX: R07.89 Other chest pain (principal); I25.10 Atherosclerotic heart disease of native coronary artery without angina pectoris; K83.8 Other specified diseases of biliary tract; U09.9 Post COVID-19 condition, unspecified; E03.9 Hypothyroidism, unspecified; I08.1 Rheumatic disorders of both mitral and tricuspid valves; E78.5 Hyperlipidemia, unspecified; K85.90 Acute pancreatitis without necrosis or infection, unspecified; Q44.4 Choledochal cyst; Z79.02 Long term (current) use of antithrombotics/antiplatelets; Z79.82 Long term (current) use of aspirin; Z79.899 Other long term (current) drug therapy; Z88.1 Allergy status to other antibiotic agents; Z88.2 Allergy status to sulfonamides; Z88.5 Allergy status to narcotic agent; Z88.8 Allergy status to other drugs, medicaments and biological substances; Z95.5 Presence of coronary angioplasty implant and graft; Z20.822 Contact with and (suspected) exposure to COVID-19; Z90.49 Acquired absence of other specified parts of digestive tract
CPT/HCPCS: 36415; 71045; 74181; 78452; 80048; 80053; 80076; 82150; 83690; 84484; 85025; 93005; 93017; 93306; 96374; 96376; A9500; C9113; G0378; J2785; J7042; U0003; U0005

== ENCOUNTER 2021-12-25 16:27 | Outpatient (CLI) | payer BC | END 2021-12-25 16:28 | disposition home or self-care (01) | LOC: RAD 16:27 | PROVIDERS: ATTEND Urology | DX: N20.0 Calculus of kidney (principal) | CPT/HCPCS: 74018 ==

== ENCOUNTER 2022-11-10 02:50 | Observation (INO) | payer BC ==
[2022-11-10] MEDS ORDERED: Nitroglycerin 2% Ointment 1 INCH/1 GM Packet ONE (03:56)
[2022-11-10] MEDS ORDERED: Aspirin Chewable 81 MG TAB ONE (03:56)
[2022-11-10 04:00] LABS: #Eosinphils 0.3 thou/uL (0.0-0.7); #Monocytes 0.4 thou/uL (0.11-0.59); #Neutrophils 3.9 thou/uL (1.40-6.50); %Basophils 0.6 % (0.0-1.0); %Eosinophils 4.2 % (0.0-10.0); %Lymphocytes 29.9 % (21.0-51.0); %Monocytes 6.3 % (0.0-10.0); %Neutrophils 58.7 % (42.0-75.0); Hemoglobin 13.6 g/dL (12.0-16.0); Mean Corpuscular HGB CONC 33.2 g/dL (32.0-36.0); Mean Corpuscular Hemoglobin 32.7 pg (27.0-31.0); Mean Corpuscular Volume 98.6 fl (78.0-98.0); Platelet Count 209 10x3/uL (130-400); RBC Distribution Width 12.5 % (11.5-14.5); Red Blood Cell (RBC) Count 4.16 mill/uL (4.20-5.40); White Blood Cell (WBC) Count 6.7 10x3/uL (4.8-10.8)
[2022-11-10] MEDS ORDERED: Morphine 4 MG/ML VIAL ONE (06:12)
[2022-11-10] MEDS ORDERED: Ondansetron PF 4 MG/2 ML Vial ONE (06:12)
[2022-11-10 06:21] LABS: Albumin 3.9 g/dL (3.4-4.8)
[2022-11-10 06:22] LABS: Chloride 105 mmol/L (98-107); Potassium 3.9 mmol/L (3.5-5.1); Sodium 140 mmol/L (136-145)
[2022-11-10 06:23] LABS: Calcium 8.9 mg/dL (7.8-10.44); Glucose 109 mg/dL (80-115)
[2022-11-10 06:24] LABS: Globulin 2.4 g/dL (2.4-3.5); Protein, Total 6.3 g/dL (5.8-8.1)
[2022-11-10 06:25] LABS: Anion Gap 9 mmol/L (10-20); Bilirubin, Total 1.1 mg/dL (0.2-1.2); Carbon Dioxide 30 mmol/L (23-31)
[2022-11-10 06:26] LABS: Alkaline Phosphatase 161 U/L (40-110)
[2022-11-10 06:27] LABS: Calc. Creatinine Clearance 0 mL/min (70-130); Estimated GFR 87
[2022-11-10 06:28] LABS: BUN (Urea Nitrogen) 11 mg/dL (9.8-20.1)
[2022-11-10 06:29] LABS: ALT (SGPT) 45 U/L (8-55); AST (SGOT) 222 U/L (5-34)
[2022-11-10 06:30] LABS: Lipase 55 U/L (8-78)
[2022-11-10 08:35] LABS: ALT (SGPT) 74 U/L (8-55); AST (SGOT) 329 U/L (5-34); Albumin 3.8 g/dL (3.4-4.8); Alkaline Phosphatase 166 U/L (40-110); Anion Gap 12 mmol/L (10-20); BUN (Urea Nitrogen) 10 mg/dL (9.8-20.1); Bilirubin, Total 1.5 mg/dL (0.2-1.2); Calc. Creatinine Clearance 0 mL/min (70-130); Calcium 8.9 mg/dL (7.8-10.44); Carbon Dioxide 28 mmol/L (23-31); Chloride 104 mmol/L (98-107); Estimated GFR 84; Globulin 2.3 g/dL (2.4-3.5); Glucose 116 mg/dL (80-115); Potassium 4.1 mmol/L (3.5-5.1); Protein, Total 6.1 g/dL (5.8-8.1); Sodium 140 mmol/L (136-145)
[2022-11-10 08:58] LABS: Troponin I Less than 0.010 ng/mL (< 0.028)
[2022-11-10] MEDS ORDERED: Iopamidol-370 76% 500 ML MDV (1 ML CHARGE) ONE (09:21)
[2022-11-10] MEDS: Sodium Chloride 0.9% 1,000 ML IV SCH ×3 (11:02→20:31)
[2022-11-10 11:57] VITALS: BMI 26.9
[2022-11-10] MEDS: Acetaminophen 325 MG TAB PO PRN ×2 (12:02→18:12)
[2022-11-10 12:12] LABS: Troponin I Less than 0.010 ng/mL (< 0.028)
[2022-11-10] MEDS ORDERED: Ondansetron PF 4 MG/2 ML Vial IVP PRN (12:15)
[2022-11-10] MEDS ORDERED: Ondansetron ODT 4 MG TAB SL PRN (12:15)
[2022-11-10] MEDS ORDERED: Lorazepam 0.5 MG TAB PO PRN (12:24)
[2022-11-10 14:36] LABS: Troponin I Less than 0.010 ng/mL (< 0.028)
[2022-11-10 18:22] LABS: Bacteria/HPF None Seen HPF (None Seen); Bilirubin Negative (Negative); Blood, Urine Negative (Negative); CAUTI Indications for Culture Dysuria,urgency,freq; Clarity Clear (Clear); Glucose, Urine (Dipstick) Normal (Negative); Ketone, Urine Negative (Negative); Leukocyte Negative Leu/uL (Negative); Nitrite Negative (Negative); Protein, Urine (Dipstick) Negative (Neg-Trace); RBC/HPF 0-3 HPF (0-3); Specific Gravity, Urine 1.018 (1.002-1.036); Squamous Epithelial 0-3 HPF (0-3); Urobilinogen Normal mg/dL (Less than 2); WBC/HPF 0-3 HPF (0-3)
[2022-11-10 18:27] LABS: Urine Culture Reflex No No
[2022-11-10] MEDS: Famotidine 20 MG TAB PO SCH (20:24)
[2022-11-10] MEDS: Temazepam 15 MG CAP PO PRN (20:24)
[2022-11-11 05:12] LABS: #Eosinphils 0.2 thou/uL (0.0-0.7); #Monocytes 0.5 thou/uL (0.11-0.59); %Basophils 0.2 % (0.0-1.0); %Lymphocytes 21.6 % (21.0-51.0); %Monocytes 9.7 % (0.0-10.0); %Neutrophils 64.3 % (42.0-75.0); Hemoglobin 12.5 g/dL (12.0-16.0); Mean Corpuscular HGB CONC 33.3 g/dL (32.0-36.0); Mean Corpuscular Hemoglobin 33.6 pg (27.0-31.0); Mean Corpuscular Volume 100.8 fl (78.0-98.0); Platelet Count 143 10x3/uL (130-400); RBC Distribution Width 12.7 % (11.5-14.5); Red Blood Cell (RBC) Count 3.72 mill/uL (4.20-5.40); White Blood Cell (WBC) Count 4.7 10x3/uL (4.8-10.8)
[2022-11-11 05:21] LABS: Hemoglobin A1c 5.2 % (4.0-6.0)
[2022-11-11 05:40] LABS: Anion Gap 11 mmol/L (10-20); BUN (Urea Nitrogen) 11 mg/dL (9.8-20.1); Calc. Creatinine Clearance 80 mL/min (70-130); Calcium 8.7 mg/dL (7.8-10.44); Carbon Dioxide 26 mmol/L (23-31); Chloride 110 mmol/L (98-107); Estimated GFR 95; Glucose 103 mg/dL (80-115); Potassium 3.9 mmol/L (3.5-5.1); Sodium 143 mmol/L (136-145)
[2022-11-11] MEDS: Levothyroxine Sodium 50 MCG TAB PO SCH (06:17)
[2022-11-11] MEDS ORDERED: Regadenoson 0.4 MG/5 ML SYRINGE ONE (09:13)
[2022-11-11 09:20] LABS: ALT (SGPT) 88 U/L (8-55); AST (SGOT) 183 U/L (5-34); Albumin 3.4 g/dL (3.4-4.8); Alkaline Phosphatase 178 U/L (40-110); Bilirubin, Direct 0.8 mg/dL (0.1-0.3); Bilirubin, Total 1.8 mg/dL (0.2-1.2); Protein, Total 5.6 g/dL (5.8-8.1)
[2022-11-11] MEDS ORDERED: cefTRIAXone\\ROCEPHIN 1 GM in Sodium Chloride 0.9% 100 ML IVPB SCH (10:00)
[2022-11-11] MEDS: Escitalopram Oxalate 10 mg Tablet PO SCH (11:31)
[2022-11-11] MEDS: Famotidine 20 MG TAB PO SCH ×2 (11:31→21:03)
[2022-11-11] MEDS: Aspirin 81 mg Enteric Coated Tablet PO SCH (11:31)
[2022-11-11] MEDS: Clopidogrel Bisulfate 75 MG TAB PO SCH (11:31)
[2022-11-11] MEDS: Temazepam 15 MG CAP PO PRN (23:04)
[2022-11-12 05:09] LABS: #Eosinphils 0.3 thou/uL (0.0-0.7); #Monocytes 0.5 thou/uL (0.11-0.59); #Neutrophils 2.4 thou/uL (1.40-6.50); %Basophils 0.2 % (0.0-1.0); %Lymphocytes 26.3 % (21.0-51.0); %Monocytes 12.4 % (0.0-10.0); %Neutrophils 54.9 % (42.0-75.0); Hemoglobin 12.4 g/dL (12.0-16.0); Mean Corpuscular HGB CONC 33.3 g/dL (32.0-36.0); Mean Corpuscular Hemoglobin 33.3 pg (27.0-31.0); Platelet Count 155 10x3/uL (130-400); RBC Distribution Width 12.7 % (11.5-14.5); Red Blood Cell (RBC) Count 3.72 mill/uL (4.20-5.40); White Blood Cell (WBC) Count 4.3 10x3/uL (4.8-10.8)
[2022-11-12 06:14] LABS: ALT (SGPT) 65 U/L (8-55); AST (SGOT) 94 U/L (5-34); Albumin 3.6 g/dL (3.4-4.8); Alkaline Phosphatase 207 U/L (40-110); Anion Gap 15 mmol/L (10-20); BUN (Urea Nitrogen) 10 mg/dL (9.8-20.1); Bilirubin, Total 1.1 mg/dL (0.2-1.2); Calc. Creatinine Clearance 76 mL/min (70-130); Calcium 8.8 mg/dL (7.8-10.44); Carbon Dioxide 21 mmol/L (23-31); Chloride 109 mmol/L (98-107); Estimated GFR 89; Globulin 2.5 g/dL (2.4-3.5); Glucose 96 mg/dL (80-115); Potassium 3.9 mmol/L (3.5-5.1); Protein, Total 6.1 g/dL (5.8-8.1); Sodium 141 mmol/L (136-145)
[2022-11-12] MEDS: Levothyroxine Sodium 50 MCG TAB PO SCH (06:27)
[2022-11-12 07:48] VITALS: BP 147/67; TEMP 98.5
[2022-11-12] MEDS: Clopidogrel Bisulfate 75 MG TAB PO SCH (08:24)
[2022-11-12] MEDS: Escitalopram Oxalate 10 mg Tablet PO SCH (08:24)
[2022-11-12] MEDS: Famotidine 20 MG TAB PO SCH (08:25)
[2022-11-12] MEDS: Aspirin 81 mg Enteric Coated Tablet PO SCH (08:25)
== END 2022-11-12 10:05 | disposition home or self-care (01) ==
LOC: ERS 02:50 → 2SW 10:20
PROVIDERS: ADMIT Specialist; ATTEND Specialist
DX: R10.11 Right upper quadrant pain (principal); R10.13 Epigastric pain; R07.9 Chest pain, unspecified; I08.1 Rheumatic disorders of both mitral and tricuspid valves; F41.8 Other specified anxiety disorders; I25.10 Atherosclerotic heart disease of native coronary artery without angina pectoris; E03.9 Hypothyroidism, unspecified; E78.5 Hyperlipidemia, unspecified; Z79.890 Hormone replacement therapy; Z79.82 Long term (current) use of aspirin; Z79.02 Long term (current) use of antithrombotics/antiplatelets; Z90.49 Acquired absence of other specified parts of digestive tract; Z90.710 Acquired absence of both cervix and uterus; Z88.1 Allergy status to other antibiotic agents; Z79.899 Other long term (current) drug therapy; Z88.6 Allergy status to analgesic agent; Z88.2 Allergy status to sulfonamides; Z88.8 Allergy status to other drugs, medicaments and biological substances
CPT/HCPCS: 36415; 71045; 74177; 78452; 80048; 80053; 80076; 81001; 83036; 83690; 83880; 84484; 85025; 93005; 93017; 93306; 96372; 96374; 96375; A9500; G0378; J0696; J1650; J2270; J2405; J2785; J3490; J7050; Q0162; Q9967

== ENCOUNTER 2023-02-22 09:00 | Outpatient (CLI) | payer BC | END 2023-02-22 09:01 | disposition home or self-care (01) | LOC: BICRAD 09:00 | PROVIDERS: ATTEND Urology | DX: N20.0 Calculus of kidney (principal); N28.89 Other specified disorders of kidney and ureter | CPT/HCPCS: 74018 ==

== ENCOUNTER 2023-03-11 14:29 | Emergency (ER) | payer BC ==
[~2023-03-11 14:29] MED LIST changes: -Iopamidol-370 76% 500 ML 1 ML ONE; +Iopamidol-370 76% 500 ML MDV (1 ML CHARGE) ONE
[2023-03-11 14:55] LABS: #Eosinphils 0.2 thou/uL (0.0-0.7); #Monocytes 0.5 thou/uL (0.11-0.59); #Neutrophils 4.3 thou/uL (1.40-6.50); %Basophils 0.5 % (0.0-1.0); %Eosinophils 2.7 % (0.0-10.0); %Lymphocytes 23.3 % (21.0-51.0); %Monocytes 7.8 % (0.0-10.0); %Neutrophils 65.4 % (42.0-75.0); Hematocrit 40.2 % (36.0-47.0); Hemoglobin 13.4 g/dL (12.0-16.0); Mean Corpuscular HGB CONC 33.3 g/dL (32.0-36.0); Mean Corpuscular Hemoglobin 32.6 pg (27.0-31.0); Mean Corpuscular Volume 97.8 fl (78.0-98.0); Platelet Count 216 10x3/uL (130-400); RBC Distribution Width 12.8 % (11.5-14.5); Red Blood Cell (RBC) Count 4.11 mill/uL (4.20-5.40); White Blood Cell (WBC) Count 6.6 10x3/uL (4.8-10.8)
[2023-03-11 15:22] LABS: ALT (SGPT) 12 U/L (8-55); AST (SGOT) 33 U/L (5-34); Albumin 4.6 g/dL (3.4-4.8); Alkaline Phosphatase 176 U/L (40-110); Anion Gap 12 mmol/L (10-20); BUN (Urea Nitrogen) 12 mg/dL (9.8-20.1); Bilirubin, Total 0.9 mg/dL (0.2-1.2); Calc. Creatinine Clearance 0 mL/min (70-130); Calcium 9.5 mg/dL (7.8-10.44); Carbon Dioxide 27 mmol/L (23-31); Chloride 105 mmol/L (98-107); Estimated GFR 90; Globulin 2.4 g/dL (2.4-3.5); Glucose 103 mg/dL (80-115); Lipase 39 U/L (8-78); Potassium 4.1 mmol/L (3.5-5.1); Sodium 140 mmol/L (136-145)
[2023-03-11 15:50] LABS: Bacteria/HPF None Seen HPF (None Seen); Bilirubin Negative (Negative); Blood, Urine Negative (Negative); CAUTI Indications for Culture Pelvic or flank pain; Clarity Clear (Clear); Glucose, Urine (Dipstick) Normal (Negative); Ketone, Urine Negative (Negative); Leukocyte Negative Leu/uL (Negative); Nitrite Negative (Negative); Protein, Urine (Dipstick) Negative (Neg-Trace); RBC/HPF None Seen HPF (0-3); Specific Gravity, Urine 1.008 (1.002-1.036); Squamous Epithelial None Seen HPF (0-3); Urobilinogen Normal mg/dL (Less than 2); WBC/HPF 0-3 HPF (0-3)
[2023-03-11 15:53] LABS: Urine Culture Reflex No No
[2023-03-11] MEDS ORDERED: Mag-Al 1200 mg/1200 mg/30 ML UDCUP ONE (16:19)
[2023-03-11] MEDS ORDERED: Acetaminophen 500 MG TAB ONE (16:19)
[2023-03-11 16:30] LABS: Troponin I Less than 0.010 ng/mL (< 0.028)
== END 2023-03-11 18:31 | disposition home or self-care (01) ==
LOC: ERS 14:29
DX: R07.9 Chest pain, unspecified (principal); R10.11 Right upper quadrant pain; R91.1 Solitary pulmonary nodule; I10 Essential (primary) hypertension; E03.9 Hypothyroidism, unspecified
CPT/HCPCS: 36415; 71045; 71275; 74177; 80053; 81001; 83690; 84484; 85025; 93005; Q9967